=== PATIENT | female | born 1975 | race Caucasian/White ===

== ENCOUNTER 2020-09-09 19:46 | Emergency (ER) | payer OTHER ==
[2020-09-09] MEDS ORDERED: BACITRACIN15 GM TOP (20:58)
== END 2020-09-09 21:00 | disposition home or self-care (01) ==
LOC: FER 19:46
DX: T23.232A Burn of second degree of multiple left fingers (nail), not including thumb, initial encounter (principal); F17.210 Nicotine dependence, cigarettes, uncomplicated; X19.XXXA Contact with other heat and hot substances, initial encounter; Y92.69 Other specified industrial and construction area as the place of occurrence of the external cause; Y99.0 Civilian activity done for income or pay
CPT/HCPCS: 99283

== ENCOUNTER 2021-09-09 21:53 | Emergency (ER) | payer OTHER ==
[~2021-09-09 21:53] MED LIST: BACITRACIN15 GM TOP
[2021-09-09 22:56] LABS: BASOPHIL 0.6 % (0-2); EOSINOPHIL 2.2 % (0-5); HCT 46.1 % (37.0-47.0); HGB 15.8 g/dl (12.5-16.0); LYMPHOCYTE 20.7 % (15-48); MCHC 34.3 g/dL (32.0-36.0); MCV 93.3 fL (78.0-100.0); MONOCYTE 6.2 % (0-12); MPV 11.5 fL (6.0-9.5); NEUTROPHIL 69.9 % (41-80); NRBC 0; PLT 231 K/uL (150-400); RBC 4.94 M/uL (4.20-5.40); RDW 11.6 % (11.5-14.0); WBC 11.1 K/uL (4.0-10.5)
[2021-09-09 23:06] LABS: INR 0.94 (0.9-1.2); PTT 25.7 SECONDS (24.4-34.7)
[2021-09-09 23:14] LABS: ALBUMIN 3.6 g/dL (3.4-5.0); BILIRUBIN - TOTAL 0.3 mg/dL (0.2-1.0); BUN/CREAT RATIO (CALC) 9.2 RATIO; CREATININE 0.65 mg/dL (0.51-0.95); POTASSIUM 3.7 mmol/L (3.5-5.1); TOTAL PROTEIN 7.6 g/dL (6.4-8.2)
[2021-09-10] MEDS ORDERED: PRINIVIL10 MG PO (01:39)
== END 2021-09-10 01:55 | disposition home or self-care (01) ==
LOC: FER 21:53
PROVIDERS: Emergency Medicine
DX: R07.89 Other chest pain (principal); I10 Essential (primary) hypertension; F17.200 Nicotine dependence, unspecified, uncomplicated; Z79.82 Long term (current) use of aspirin; Z28.310 Unvaccinated for COVID-19
CPT/HCPCS: 36415; 71045; 80053; 84484; 85025; 85610; 85730; 93005